=== PATIENT | female | born 1985 | race Caucasian/White ===

== ENCOUNTER 2024-04-24 11:39 | Emergency (ER) | payer MEDICAID, SELFPAY ==
[2024-04-24 12:32] VITALS: BP 134/67; PULSE 70; RESP 16; TEMP 36.6; O2SAT 100; BMI 25.7
--- NOTE | 2024-04-24 12:32 | ED.GENADULT ---
HPI - General Adult General Chief complaint: General Medical Stated complaint: seeking suboxone Time Seen by Provider: 04/24/24 13:07 Source: patient and old records reviewed Mode of arrival: ambulatory Limitations: no limitations History of Present Illness ED Provider: YORDY WALKER narrative: 38 yo female with PMH of recovery doing well on suboxone she takes 8/2 BID she had last dose yesterday next appointment tomorrow at [facility]. She denies SI/HI. She is worried she cannot make it the weekend without it. She has not used. complaint: needs suboxone dose Onset (ago): day(s) (1) Severity: mild Relieving factors: none Exacerbating factors: none Associated symptoms: denies other symptoms Treatments prior to arrival: none Related Data Previous Rx's ?Medication ?Instructions ?Recorded buprenorphine 8 mg-naloxone 2 mg 1 film buccal BID #4 ea 04/24/24 sublingual film (Suboxone) Allergies Allergy/AdvReac Type Severity Reaction Status Date / Time amoxicillin [AMOXICILLIN] Allergy Unknown SWELLING Verified 04/24/24 12:33 penicillin V Allergy Unknown swelling Verified 04/24/24 12:33 Penicillins [PENICILLINS] Allergy Unknown SWELLING Verified 04/24/24 12:33 Review of Systems Review of Systems: Constitutional : No Fever, No Chills, Cardiovascular : No Chest Pain, No SOB Respiratory : No Dyspnea Gastrointestinal : No abdominal pain Musculoskeletal : No Joint Swelling Skin : No rash, no skin lesions Neuro : No Weakness, No Numbness Psych : No SI/HI All other systems reviewed and are negative PMFSH Past Medical History Attestation statement: The following information was validated with the patient. Medical History At risk for abuse of opiates Social History Social History Do you have a plan to hurt others: No Plan Physical Exam ED Vital Signs: Vital Signs - 24 hr 04/24/24 12:32 Temperature 97.8 F Pulse Rate 70 Respiratory Rate 16 Blood Pressure 134/67 Pulse Oximetry 100 Oxygen Delivery Method Room Air BMI result Body Mass Index 25.7 Appearance: Alert. Oriented X3. No acute distress. Eyes: Pupils equal, round and reactive to light. ENT: Pharynx normal. Neck: Normal inspection. CVS: pulses normal. Respiratory: No respiratory distress. Abdomen: atraumatic Skin: Skin warm and dry. Normal skin color. Extremities: No lower extremity edema. Neuro: Oriented X 3. No motor deficit. No sensory deficit. CN2-12 intact Course Course Course Narrative: RME performed by Maria Victoria German PA-C. Patient is a 38 year old assigned female at presenting to the emergency department for suboxone dose. Patient states she usually gets dosed with 2 8mg films but she does not currently have any. Detailed physical exam and review of systems are deferred to the operating room technologist. Patient placed back in the waiting room pending room availability. Medical Decision Making Medical Decision Making MDM Narrative: 38 yo female with PMH of opiate use disorder on suboxone 10/09 follows with Scotty robins out and does not have an appointment til Friday - last dose yesterday. She denies SI/HI. 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 She was given reasons to return. Differential Diagnosis Differential Diagnoses: The differential diagnosis associated with the presentation includes opiate use disorder Prescription Management I considered prescription management with: Other (suboxone) Discharge Plan Discharge Clinical Impression: Encounter for monitoring Suboxone maintenance therapy Patient Disposition: Home, Self-Care Instructions: Buprenorphine/Naloxone (Into the mouth) Additional Instructions: follow up with scotty goodman Friday return for any worsening symptoms or concerns dosed x 1 in ED Prescriptions: New buprenorphine-naloxone [Suboxone] 8-2 mg film 1 film buccal BID Qty: 4 0RF Print Language: [place]
[2024-04-24] MEDS: Buprenorphine/Naloxone 8/2 mg FILM 1 FILM SUBLINGUAL (13:16)
[2024-04-24 13:17] VITALS: BP 134/67; PULSE 70; RESP 16; TEMP 36.6; O2SAT 100
== END 2024-04-24 13:35 | disposition home or self-care (01) ==
PROVIDERS: Emergency Provider Emergency Medicine
DX: F11.10 Opioid abuse, uncomplicated (principal); Z76.0 Encounter for issue of repeat prescription
CPT/HCPCS: 99282; 99283

== ENCOUNTER 2024-05-02 11:10 | Emergency (ER) | payer MEDICAID, SELFPAY ==
[2024-05-02 11:39] VITALS: BP 117/72; PULSE 65; RESP 18; TEMP 36.6; O2SAT 99; BMI 26.4
--- NOTE | 2024-05-02 11:39 | ED_ITS ---
HPI - General Adult General Chief complaint: General Medical Stated complaint: suboxone dose Time Seen by Provider: 05/02/24 11:46 Source: patient Mode of arrival: ambulatory Limitations: no limitations History of Present Illness ED Provider: jhon capellan customer account manager HPI narrative: Patient is a 38-year-old female who presents emergency department for evaluation, she follows with Scotty Bell in [place] she reports that she receives Suboxone films last saw [facility] 04/26/2024, she takes 8 mg twice daily. She only had enough to last her until yesterday morning, therefore she did not take one yesterday evening nor today. They are closed today. She has an appointment for tomorrow. She states ?I do not think they realized I did not have enough?. Denies recreational drug usage. Denies misuse, reporting that she is currently in a program and they provide her the films. On review of [facility], on 04/29/2024 prescription was picked up a total of 4 films, 2 day supply, correlating with her story if she took a film on the evening of 04/29/24. Related Data Previous Rx's ?Medication ?Instructions ?Recorded buprenorphine 8 mg-naloxone 2 mg 1 film buccal BID #4 ea 04/24/24 sublingual film (Suboxone) Allergies Allergy/AdvReac Type Severity Reaction Status Date / Time amoxicillin [AMOXICILLIN] Allergy Unknown SWELLING Verified 05/02/24 11:42 penicillin V Allergy Unknown swelling Verified 05/02/24 11:42 Penicillins [PENICILLINS] Allergy Unknown SWELLING Verified 05/02/24 11:42 Review of Systems Review of Systems: Yes all other systems are reviewed and are negative PMFSH Past Medical History Attestation statement: The following information was validated with the patient. Source: old records reviewed Medical History At risk for abuse of opiates Physical Exam ED Vital Signs: Vital Signs - 24 hr 05/02/24 11:39 Temperature 97.9 F Pulse Rate 65 Respiratory Rate 18 Blood Pressure 117/72 Pulse Oximetry 99 Oxygen Delivery Method Room Air BMI result Body Mass Index 26.4 Appearance: Alert.?Oriented to person, place and time. No acute distress.?Normal affect. Eyes: Pupils equal, round and reactive to light.? CVS: Heart sounds normal. Normal heart rate and rhythm.? Pulses normal.?? Respiratory: No respiratory distress.? Lung sounds clear to auscultation bilaterally??? Skin: Skin warm and dry.? Normal skin color.? Neuro: Moves all extremities spontaneously. Sensation intact bilaterally. Ambulates with normal steady gait. Medical Decision Making Medical Decision Making [facility] Narrative: Patient is a 38-year-old female past medical history opioid use disorder on Suboxone through [facility] as per [facility], receiving her films from the program she is currently in, reporting that she was last dosed yesterday morning, did not receive her evening dose nor this morning's dose and she is worried about withdrawing. Unable to get in contact with scotty bell, I have reviewed CARDIOLOGY PHYSICIAN ASSISTANT as per [facility], and confirmed with [facility], her current program, she was last dosed there yesterday and they provide her with the films, she does not have access to them on her own. She received a single dose of Suboxone in the emergency department this evening at 15:00, this should cover her for her evening dose, and she can follow-up with Scotty Bell tomorrow. Differential Diagnosis Differential Diagnoses: The differential diagnosis associated with the presentation includes (Opioid use disorder, Suboxone dependence, recreational drug use) Independent Historian Clinical information obtained from an independent historian. History obtained from or confirmed by: Other ([facility] staff) External Record Review External record reviewed: Outpatient record and Other I attest that I have reviewed patients [place], and at the time prescribing the patient a controlled substance is appropriate based off of patients diagnosis and treatment plan. Prescription Management I considered prescription management with: Other (See narrative above) Discharge Plan Discharge Clinical Impression: Opioid use disorder Patient Disposition: Home, Self-Care Instructions: Opioid Withdrawal (ED), Opioid Use Disorder (ED) Additional Instructions: Opiate use disorder You were seen in our Emergency Department today for treatment of opiate use disorder. You may have been dosed with medication for opiate use disorder (MOUD) in the form of suboxone which you have previously been taking. Please continue to follow-up with your clinic; [facility]. Return to emergency department any new or worsening symptoms or concerns Prescriptions: No Action buprenorphine-naloxone [Suboxone] 8-2 mg film 1 film buccal BID Qty: 4 0RF Referrals: [place],[facility] [Primary Care Provider] - Print Language: [place]ian
--- NOTE | 2024-05-02 11:49 | PC.NURSE ---
pyridine recovery operator working on pt medication
[2024-05-02 14:52] VITALS: BP 116/67; PULSE 70; RESP 16; TEMP 36.6; O2SAT 100
[2024-05-02] MEDS: Buprenorphine/Naloxone 8/2 mg FILM 1 FILM SUBLINGUAL (14:55)
[2024-05-02 15:09] VITALS: BP 116/67; PULSE 70; RESP 16; TEMP 36.6; O2SAT 100
== END 2024-05-02 15:10 | disposition home or self-care (01) ==
PROVIDERS: Emergency Provider Emergency Medicine
DX: F11.20 Opioid dependence, uncomplicated (principal)
CPT/HCPCS: 99282; 99283; S9485

== ENCOUNTER 2024-06-03 14:31 | Outpatient (REF) | payer MEDICAID, SELFPAY ==
[2024-06-03 20:01] LABS: Bacterial Vaginosis PCR POSITIVE (Negative); Candida Group PCR NOT DETECTED (Not Detect); Candida glab krusei PCR NOT DETECTED (Not Detect); Trichomonas vaginalis PCR DETECTED (Not Detect)
[2024-06-03 20:33] LABS: CT PCR NOT DETECTED (Not Detect.); NG PCR NOT DETECTED (Not Detect.)
== END 2024-06-03 14:32 | disposition home or self-care (01) ==
LOC: HO.LNP 14:31
PROVIDERS: Visit Provider Family Medicine
DX: N89.8 Other specified noninflammatory disorders of vagina (principal)
CPT/HCPCS: 81515; 87491; 87591